=== PATIENT | female | born 2005 | race Caucasian/White ===

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

== ENCOUNTER 2024-04-04 12:17 | Emergency (ER) | payer OTHER ==
[~2024-04-04] VITALS: Ht 160 cm; Wt 82.6 kg
[~2024-04-04 12:17] MED LIST changes: +IBUP-2213 PO; +IMO2 PO; +SULF-59 PO
[2024-04-04 12:24] VITALS: BP 127/68; PULSE 63; RESP 16; TEMP 98.4; O2SAT 100
[2024-04-04] MEDS ORDERED: ALBU0.0912 IH (12:43)
[2024-04-04 12:53] VITALS: O2SAT 100
[2024-04-04 12:55] VITALS: BP 127/68; PULSE 63; RESP 16; TEMP 98.4; O2SAT 100
== END 2024-04-04 12:57 | disposition home or self-care (01) ==
LOC: MED 12:17
DX: R07.89 Other chest pain (principal); R51.9 Headache, unspecified; Z76.0 Encounter for issue of repeat prescription; J45.909 Unspecified asthma, uncomplicated; Z79.1 Long term (current) use of non-steroidal anti-inflammatories (NSAID); Z79.899 Other long term (current) drug therapy; Z88.0 Allergy status to penicillin
CPT/HCPCS: 93005; 99283